=== PATIENT | male | born 1955 | race Caucasian/White ===

== ENCOUNTER 2021-05-01 10:10 | Outpatient (CLI) | payer MEDICARE, SELFPAY ==
--- NOTE | 2021-05-01 10:28 | XRR_ITS ---
PROCEDURE INFORMATION: Exam: XR Right Hip Exam date and time: 05/01/2021 10:28 AM Age: 65 years old Clinical indication: Hip pain; Right hip; Additional info: Right hip pain TECHNIQUE: Imaging protocol: XR Right hip. Views: 1 view hip with pelvis when performed. Total images: 2 COMPARISON: No relevant prior studies available. FINDINGS: Bones/joints: Moderate degenerative changes of the right hip. No acute fracture nor subluxation. No osseous erosion nor periosteal reaction. Soft tissues: Unremarkable. XR/XR hip RT 2-3V wo/w pel* [id number] IMPRESSION: 1. Moderate degenerative changes of the right hip. 2. No acute osseous pathology.
== END 2021-05-01 10:11 | disposition home or self-care (01) ==
LOC: RAD 10:20
PROVIDERS: Visit Provider Family Medicine
DX: M25.551 Pain in right hip (principal)
CPT/HCPCS: 73502

== ENCOUNTER 2021-06-27 13:02 | Outpatient (CLI) | payer MEDICARE, SELFPAY ==
--- NOTE | 2021-06-27 13:15 | MR_ITS ---
WS: [id number] MRI RIGHT HIP without CONTRAST. COMPARISON: Radiograph RIGHT hip 05/01/2021 Multiplanar, multisequence imaging is performed without contrast. Mild narrowing of the hip joints bilaterally. There are small to moderate superior lateral acetabular osteophytes, greatest on the RIGHT. No joint effusions. Increased T2 signal extending through the RI GHT superior lateral labrum consistent with a labral tear. There is also mild RIGHT greater trochante carolyn bursitis. There is a small amount of fluid adjacent to the greater tuberosity. No marrow edema or fracture. Soft tissues and muscles are symmetric bilaterally. Visualized sacrum is normal. Prostate gland is enlarged encroaching into the urinary bladder. MR/MR hip RT wo con* [id number] IMPRESSION: 1. Superior lateral RIGHT labral tear. 2. No joint effusion or marrow edema. 3. Mild bilateral hip joint osteoarthritis. 4. Very minimal RIGHT greater trochanteric bursitis.
== END 2021-06-27 13:03 | disposition home or self-care (01) ==
LOC: RAD 13:04
PROVIDERS: Visit Provider Family Medicine
DX: M16.11 Unilateral primary osteoarthritis, right hip (principal); M70.61 Trochanteric bursitis, right hip
CPT/HCPCS: 73721

== ENCOUNTER → 2021-06-30 13:19 | Outpatient (BNVA) | payer MEDICARE, SELFPAY | PROVIDERS: Referring Provider Family Medicine; Visit Provider Specialist | DX: M25.551 Pain in right hip (principal) | CPT/HCPCS: 73502 ==

== ENCOUNTER → 2021-08-20 15:02 | Outpatient (BNVA) | payer MEDICARE, SELFPAY | PROVIDERS: PCP Family Medicine; Visit Provider Specialist | DX: M16.11 Unilateral primary osteoarthritis, right hip (principal); S73.191A Other sprain of right hip, initial encounter; X58.XXXA Exposure to other specified factors, initial encounter | CPT/HCPCS: 73502; 99213 ==

== ENCOUNTER 2022-01-15 13:45 | Outpatient (CLI) | payer MEDICARE, SELFPAY ==
--- NOTE | 2022-01-15 14:17 | XRR_ITS ---
PROCEDURE INFORMATION: Exam: XR Cervical Spine Exam date and time: 01/15/2022 2:21 PM Age: 66 years old Clinical indication: Neck pain; Prior surgery; Surgery type: Arachnoid cysts at back of neck; Additional info: Chronic neck pain TECHNIQUE: Imaging protocol: Radiologic exam of the cervical spine. Views: 2 or 3 views. COMPARISON: CR XR chest 2V* [id number] 05/30/2018 9:35 AM FINDINGS: Bones/joints: No anterior wedging deformity. No acute lucent fracture lines visualized. Spondylitic changes are seen at the C6-C7 level. No destructive osseous lesions are seen. Soft tissues: Unremarkable. XR/XR cervical spine 3V* [id number] IMPRESSION: Spondylitic changes at the C6-C7 level.
--- NOTE | 2022-01-15 14:17 | XRR_ITS ---
PROCEDURE INFORMATION: Exam: XR Chest Exam date and time: 01/15/2022 2:21 PM Age: 66 years old Clinical indication: Cough; Additional info: Chronic cough TECHNIQUE: Imaging protocol: Radiologic exam of the chest. Views: 2 views. COMPARISON: CR XR chest 2V* [id number] 05/30/2018 9:35 AM FINDINGS: Lungs: There are findings of bronchitis. Developing interstitial opacity in the right lower lung may reflect atelectasis or pneumonitis. Correlate with clinical information. Pleural spaces: Unremarkable. No pleural effusion. No pneumothorax. Heart/Mediastinum: Unremarkable. No cardiomegaly. Diaphragm: There is chronic elevation of the left hemidiaphragm. Bones/joints: Unremarkable. XR/XR chest 2V* [id number] IMPRESSION: 1. Findings of bronchitis. 2. Developing interstitial opacity in the right lower lung may reflect atelectasis or pneumonitis. Correlate with clinical information.
== END 2022-01-15 13:46 | disposition home or self-care (01) ==
LOC: RAD 13:52
PROVIDERS: PCP Family Medicine; Visit Provider Family Medicine
DX: M54.2 Cervicalgia (principal); G89.29 Other chronic pain; J40 Bronchitis, not specified as acute or chronic
CPT/HCPCS: 71046; 72040

== ENCOUNTER → 2022-06-25 13:48 | Outpatient (BNVA) | payer MEDICARE, SELFPAY | PROVIDERS: PCP Family Medicine; Referring Provider General Practice; Visit Provider Physician Assistant | DX: M50.30 Other cervical disc degeneration, unspecified cervical region (principal); M47.812 Spondylosis without myelopathy or radiculopathy, cervical region | CPT/HCPCS: 72050; 99203 ==

== ENCOUNTER → 2022-07-15 12:58 | Outpatient (BNVA) | payer MEDICARE, SELFPAY | PROVIDERS: PCP Family Medicine; Referring Provider General Practice; Visit Provider Specialist | DX: M16.11 Unilateral primary osteoarthritis, right hip (principal); S73.191A Other sprain of right hip, initial encounter; X58.XXXA Exposure to other specified factors, initial encounter | CPT/HCPCS: 73502; 99214 ==

== ENCOUNTER 2022-07-20 13:29 | Outpatient (CLI) | payer MEDICARE, SELFPAY ==
--- NOTE | 2022-07-20 13:45 | MR_ITS ---
WS: [id number] MRI CERVICAL SPINE NONCONTRAST TECHNIQUE: Sagittal T1, T2 and STIR imaging. Axial T2, gradient, and fiesta imaging. CLINICAL INFORMATION: neck pain COMPARISON: None. FINDINGS: Straightening of the normal cervical lordosis. Small amount of myelomalacia in the cervical cord at C 5-C6. Cord signal is otherwise normal. C2-C3: Mild facet arthropathy. Spinal canal and foramen are patent. C3-C4: Mild disc osteophyte complex with slight contact of the cervical cord. Moderate facet arthropa thy. Mild RIGHT greater than LEFT bony foraminal narrowing. C4-C5: Disc osteophyte complex with tiny shallow central protrusion. Moderate facet arthropathy. Spin al canal and foramen are patent. C5-C6: Disc osteophyte complex with slight contact of the cervical cord. Spinal canal is patent. Fora men are patent. Moderate facet arthropathy. C6-C7: Disc osteophyte complex with slight contact of the RIGHT ventral cervical cord. Mild central c anal stenosis. Moderate RIGHT and mild LEFT bony foraminal narrowing. Mild facet arthropathy. C7-T1: Mild LEFT and no significant RIGHT foraminal narrowing. Spinal canal is patent. Visualized brain stem structures: Normal. Prevertebral soft tissues: Normal. MR/MR cervical spin wo con* [id number] IMPRESSION: 1. Straightening of the normal cervical lordosis. 2. Small amount of myelomalacia in the cervical cord at C5-C6. Cord signal oth erwise appears normal. 3. Mild central canal stenosis C6-C7 with slight contact of the RIGHT ventral cervical cord. Moderate RIGHT C6-C7 bony foraminal narrowing. 4. Moderate facet arthropathy C3-C4 C4-C5 C5-C6.
== END 2022-07-20 13:30 | disposition home or self-care (01) ==
LOC: RAD 13:34
PROVIDERS: PCP Family Medicine; Visit Provider Physician Assistant
DX: M47.812 Spondylosis without myelopathy or radiculopathy, cervical region (principal); M54.2 Cervicalgia; M25.78 Osteophyte, vertebrae; R20.2 Paresthesia of skin
CPT/HCPCS: 72141

== ENCOUNTER → 2022-09-10 13:46 | Outpatient (BNVA) | payer MEDICARE, SELFPAY | PROVIDERS: PCP Family Medicine; Visit Provider Orthopaedic Surgery | DX: M54.2 Cervicalgia (principal) | CPT/HCPCS: 99214 ==

== ENCOUNTER 2022-11-24 14:44 | Emergency (ER) | payer MEDICARE, SELFPAY ==
[2022-11-24 14:47] VITALS: BP 165/76; PULSE 81; RESP 18; TEMP 37.1; O2SAT 99
[2022-11-24 14:52] VITALS: BP 165/76; PULSE 81; RESP 18; O2SAT 99
[2022-11-24 15:18] LABS: Basophils % 0.3 %; Hematocrit 42.1 % (37-53); Lymphocytes % 22.1 %; Mean Corpuscular Hemoglobin 29.9 pg (27-33); Mean Corpuscular Volume 87.9 fl (82-101); Monocytes # 0.5 10^3/uL (0.2-0.9); Monocytes % 5.7 %; Neutrophils # 6.38 10^3/uL (1.8-7.7); Neutrophils % 71.7 %; Nucleated Red Blood Cells % 0 %; Platelet Count 225 10^3/cmm (157-399); Red Blood Count 4.79 10^6/uL (3.85-5.65); Red Cell Distribution Width 13.1 % (12.1-15.1); White Blood Count 8.91 10^3/uL (3.29-11.43)
[2022-11-24 15:41] LABS: Alanine Aminotransferase 15 U/L (0-41); Albumin Level 4.5 g/dL (3.5-5.2); Alkaline Phosphatase 77 U/L (40-130); Anion Gap 15.2 (5-19); Aspartate Amino Transferase 15 U/L (0-40); Blood Urea Nitrogen 16 mg/dL (8-23); Carbon Dioxide 22 mmol/L (22-29); Chloride 105 mmol/L (98-107); Globulin 2.2 g/dL (1.3-4.6); Glomerular Filtration Rate 166.9 mL/min (90-130); Glucose 160 mg/dL (65-115); Osmolality Calculated 291 mOsm/kg (285-295); Potassium 4.2 mmol/L (3.5-5.1); Sodium 138 mmol/L (136-145); Total Bilirubin 0.2 mg/dL (0.15-1.2); Total Protein 6.7 g/dL (6.6-8.7)
[2022-11-24 15:44] LABS: Acetaminophen < 5.0 ug/mL (10-30); Salicylate < 0.3 mg/dL (3-10)
[2022-11-24 15:58] LABS: Add Urine Microscopic? NO; Charge for UA Resulting for Rev
--- NOTE | 2022-11-24 16:05 | W.ED.PSYCHS ---
Documented by User: Valentin Yeager DO 11/25/22 05:54 HPI - Psych General: Chief Complaint: Psychiatric Symptoms Stated Complaint: /96 hold Time Seen by Provider: 11/24/22 14:53 Source: patient Mode of arrival: other (Accompanied by law enforcement) History of Present Illness: 67-year-old male presents emergency room with a long force on a 96-hour hold. Discussed with him read the deputies affidavit and discussed with his . He has become paranoid about his neighbor who is convinced is really dealing drugs. According to the his neighbor is likely actually dealing drugs however the patient has began to become obsessed with this he is convinced that they are mowing circles and the field next time to drop drugs onto from helicopters. He states he sees them out crawling around in the [place] with flashlight. He has made comments about going after the neighbor and some of the neighborhoods colleagues with firearms he is made social media posts alluding to the same. Is also comment to his about putting a bulletproof vest on her and then going after them using a pistol. Today he went to the it security administrator's department to try to file charges regarding drug dealing and they referred him to the ER for mental health evaluation because of his paranoid delusions. He denies suicidal ideation but has made threats of violence towards the neighbor to his . He is also made comments alluding to killing himself and his as well as a neighbor. This has been going on for some time but in the last week has been escalating significantly. Onset (ago): month(s) Duration: changing over time and getting worse History of same: Yes Relieving factors: none Exacerbating factors: none Associated symptoms: Deny auditory hallucinations, visual hallucinations, delusions, depression, homicidal ideation, suicidal ideation or racing thoughts Treatments prior to arrival: placed on mental health hold Review of Systems Const: Denies: fever(s), chills, fatigue or malaise Card: Denies: chest pain, edema, dyspnea on exertion or orthopnea Resp: Denies: dyspnea, productive cough or non-productive cough GI: Denies: abdominal pain, nausea, vomiting or melena : Denies: flank pain, dysuria, urinary frequency or urinary urgency Skin/Breast: Denies: rash or pruritus Psych: Denies: depression, visual hallucinations, auditory hallucinations, suicidal ideation or homicidal ideation PFSH ED PFSH: Social History Smoking and tobacco status: current every day smoker Physical Exam Const: GENERAL APPEARANCE: cooperative and comfortable ORIENTATION/CONSCIOUSNESS: Yes awake HENMT: COMMON NORMALS: normocephalic, atraumatic and hearing grossly normal bilaterally HEAD & SCALP: normocephalic and atraumatic Resp: COMMON NORMALS: normal respiratory effort, No retractions, No use of accessory muscles and clear to auscultation bilaterally AUSCULTATION: clear to auscultation bilaterally Cardio: COMMON NORMALS: regular rate, regular rhythm and No murmurs present (Cardio) RATE: regular rate RHYTHM: regular rhythm GI: COMMON NORMALS: Soft to palpation and No hepatosplenomegaly present AUSCULTATION: Yes normoactive bowel sounds PALPATION: Yes Soft to palpation, No Tenderness to palpation present (GI), No Guarding due to palpation present (GI) and Yes No hepatosplenomegaly present Extremity: COMMON NORMALS: normal to inspection, capillary refill normal, no clubbing, cyanosis or edema, no calf tenderness and no pedal edema Psych: THOUGHT CONTENT: No delusions Skin: COMMON NORMALS: no rashes or lesions noted GENERAL SKIN EXAM: no rashes or lesions noted Course Vital Signs: Vital signs: Vital Signs Temperature 98.8 F 11/24/22 14:47 Pulse Rate 86 11/25/22 04:11 Respiratory Rate 16 11/25/22 04:11 Blood Pressure 167/85 11/25/22 04:11 Pulse Oximetry 99 11/25/22 04:11 Oxygen Delivery Me thod Room Air 11/24/22 14:52 [facility] - Psych Medical Decision Making Care signed out to Dr. Prescott at change of shift. See final notes for diagnosis and disposition. Patient presents here with paranoia and acute psychosis was brought here on a 96-hour hold he is medically cleared spoke to provider at [facility] will transfer there due to psych bed availability. Medical Records I reviewed the patient's medical records. Lab Data I reviewed the patient's lab results. 11/24/22 15:12 11/24/22 15:12 Laboratory Results WBC 8.91 10^3/uL (3.29-11.43) 11/24/22 15:12 RBC 4.79 10^6/uL (3.85-5.65) 11/24/22 15:12 Hgb 14.30 g/dL (11.27-16.99) 11/24/22 15:12 Hct 42.1 % (37-53) 11/24/22 15:12 MCV 87.9 fl (82-101) 11/24/22 15:12 MCH 29.9 pg (27-33) 11/24/22 15:12 MCHC 34.0 g/dL (30-55) 11/24/22 15:12 RDW 13.1 % (12.1-15.1) 11/24/22 15:12 Plt Count 225 10^3/cmm (157-399) 11/24/22 15:12 MPV 9.0 fL (7.4-10.4) 11/24/22 15:12 Neut % (Auto) 71.7 % 11/24/22 15:12 Lymph % (Auto) 22.1 % 11/24/22 15:12 [place] % (Auto) 5.7 % 11/24/22 15:12 Eos % (Auto) 0.0 % 11/24/22 15:12 Baso % (Auto) 0.3 % 11/24/22 15:12 Neut # (Auto) 6.38 10^3/uL (1.8-7.7) 11/24/22 15:12 Lymph # (Auto) 2.0 10^3/uL (0.8-4.8) 11/24/22 15:12 [place] # (Auto) 0.5 10^3/uL (0.2-0.9) 11/24/22 15:12 Eos # (Auto) 0.0 10^3/uL (0.0-0.8) 11/24/22 15:12 Baso # (Auto) 0.0 10^3/uL (0.0-0.1) 11/24/22 15:12 Nucleated RBC % (auto) 0 % 11/24/22 15:12 Nucleated RBCs # 0.0 /100WBC 11/24/22 15:12 Sodium 138 mmol/L (136-145) 11/24/22 15:12 Potassium 4.2 mmol/L (3.5-5.1) 11/24/22 15:12 Chloride 105 mmol/L (98-107) 11/24/22 15:12 Carbon Dioxide 22 mmol/L (22-29) 11/24/22 15:12 Anion Gap 15.2 (5-19) 11/24/22 15:12 BUN 16 mg/dL (8-23) 11/24/22 15:12 Creatinine 0.5 mg/dL (0.7-1.2) L 11/24/22 15:12 GFR Calculation 166.9 mL/min (90-130) H 11/24/22 15:12 Glucose 160 mg/dL (65-115) H 11/24/22 15:12 Calculated Osmolality 291 mOsm/kg (285-295) 11/24/22 15:12 Calcium 9.0 mg/dL (8.5-10.5) 11/24/22 15:12 Total Bilirubin 0.2 mg/dL (0.15-1.2) 11/24/22 15:12 AST 15 U/L (0-40) 11/24/22 15:12 ALT 15 U/L (0-41) 11/24/22 15:12 Alkaline Phosphatase 77 U/L (40-130) 11/24/22 15:12 Total Protein 6.7 g/dL (6.6-8.7) 11/24/22 15:12 Albumin 4.5 g/dL (3.5-5.2) 11/24/22 15:12 Globulin 2.2 g/dL (1.3-4.6) 11/24/22 15:12 Urine Color Yellow (Yellow) 11/24/22 15:52 Urine Appearance Clear (CLEAR) 11/24/22 15:52 Urine pH 7 (5-7) 11/24/22 15:52 Ur Specific [place] 1.000 (1.005-1.030) L 11/24/22 15:52 Urine Protein Neg (Negative) 11/24/22 15:52 Urine Glucose (UA) Norm (Normal) 11/24/22 15:52 Urine Ketones Negative (Negative) 11/24/22 15:52 Urine Blood Neg (Negative) 11/24/22 15:52 Urine Nitrate Negative (Negative) 11/24/22 15:52 Urine Bilirubin Neg (Negative) 11/24/22 15:52 Urine Urobilinogen Norm mg/dL (Negative) 11/24/22 15:52 Ur Leukocyte Esterase Negative (Negative) 11/24/22 15:52 Salicylates < 0.3 mg/dL (3-10) L 11/24/22 15:12 Urine Opiates Screen Negative ng/mL (Negative) 11/24/22 15:52 Acetaminophen < 5.0 ug/mL (10-30) L 11/24/22 15:12 Ur Barbiturates Screen Negative ng/mL (Negative) 11/24/22 15:52 Ur Phencyclidine Scrn Negative ng/mL (Negative) 11/24/22 15:52 Ur Amphetamines Screen Negative ng/mL (Negative) 11/24/22 15:52 U Benzodiazepines Scrn Negative ng/mL (Negative) 11/24/22 15:52 Urine Cocaine Screen Negative ng/mL (Negative) 11/24/22 15:52 U Marijuana (THC) Screen Negative ng/mL (Negative) 11/24/22 15:52 Ethyl Alcohol < 10 mg/dL (0-10) 11/24/22 15:12 SARS-CoV-2 Ag (Rapid) negative (Negative) 11/24/22 15:52 Discharge Plan Discharge Patient Disposition: Xfer Psychiatric Hosp Clinical Impression: Acute psychosis Condition: Stable Referrals: Jalen Garcia MD [Primary Care Provider] - Coding Level of Care Code ED Cornice Upholsterer for Chg Fwd Documented by User: Kelvin Prescott MD 11/25/22 04:42 HPI - Psych General: Chief Complaint: Psychiatric Symptoms Stated Complaint: SI/96 hold Time Seen by Provider: 11/24/22 14:53 PFSH ED PFSH: Social History Smoking and tobacco status: current every day smoker Course Vital Signs: Vital signs: Vital Signs Temperature 98.8 F 11/24/22 14:47 Pulse Rate 86 11/25/22 04:11 Respiratory Rate 16 11/25/22 04:11 Blood Pressure 167/85 11/25/22 04:11 Pulse Oximetry 99 11/25/22 04:11 Oxygen Delivery Me thod Room Air 11/24/22 14:52 MDM - Psych Medical Decision Making Patient presents here with paranoia and acute psychosis was brought here on a 96-hour hold he is medically cleared spoke to provider at [facility] will transfer there due to psych bed availability. Lab Data 11/24/22 15:12 11/24/22 15:12 Laboratory Results WBC 8.91 10^3/uL (3.29-11.43) 11/24/22 15:12 RBC 4.79 10^6/uL (3.85-5.65) 11/24/22 15:12 Hgb 14.30 g/dL (11.27-16.99) 11/24/22 15:12 Hct 42.1 % (37-53) 11/24/22 15:12 MCV 87.9 fl (82-101) 11/24/22 15:12 MCH 29.9 pg (27-33) 11/24/22 15:12 MCHC 34.0 g/dL (30-55) 11/24/22 15:12 RDW 13.1 % (12.1-15.1) 11/24/22 15:12 Plt Count 225 10^3/cmm (157-399) 11/24/22 15:12 MPV 9.0 fL (7.4-10.4) 11/24/22 15:12 Neut % (Auto) 71.7 % 11/24/22 15:12 Lymph % (Auto) 22.1 % 11/24/22 15:12 [place] % (Auto) 5.7 % 11/24/22 15:12 Eos % (Auto) 0.0 % 11/24/22 15:12 Baso % (Auto) 0.3 % 11/24/22 15:12 Neut # (Auto) 6.38 10^3/uL (1.8-7.7) 11/24/22 15:12 Lymph # (Auto) 2.0 10^3/uL (0.8-4.8) 11/24/22 15:12 [place] # (Auto) 0.5 10^3/uL (0.2-0.9) 11/24/22 15:12 Eos # (Auto) 0.0 10^3/uL (0.0-0.8) 11/24/22 15:12 Baso # (Auto) 0.0 10^3/uL (0.0-0.1) 11/24/22 15:12 Nucleated RBC % (auto) 0 % 11/24/22 15:12 Nucleated RBCs # 0.0 /100WBC 11/24/22 15:12 Sodium 138 mmol/L (136-145) 11/24/22 15:12 Potassium 4.2 mmol/L (3.5-5.1) 11/24/22 15:12 Chloride 105 mmol/L (98-107) 11/24/22 15:12 Carbon Dioxide 22 mmol/L (22-29) 11/24/22 15:12 Anion Gap 15.2 (5-19) 11/24/22 15:12 BUN 16 mg/dL (8-23) 11/24/22 15:12 Creatinine 0.5 mg/dL (0.7-1.2) L 11/24/22 15:12 GFR Calculation 166.9 mL/min (90-130) H 11/24/22 15:12 Glucose 160 mg/dL (65-115) H 11/24/22 15:12 Calculated Osmolality 291 mOsm/kg (285-295) 11/24/22 15:12 Calcium 9.0 mg/dL (8.5-10.5) 11/24/22 15:12 Total Bilirubin 0.2 mg/dL (0.15-1.2) 11/24/22 15:12 AST 15 U/L (0-40) 11/24/22 15:12 ALT 15 U/L (0-41) 11/24/22 15:12 Alkaline Phosphatase 77 U/L (40-130) 11/24/22 15:12 Total Protein 6.7 g/dL (6.6-8.7) 11/24/22 15:12 Albumin 4.5 g/dL (3.5-5.2) 11/24/22 15:12 Globulin 2.2 g/dL (1.3-4.6) 11/24/22 15:12 Urine Color Yellow (Yellow) 11/24/22 15:52 Urine Appearance Clear (CLEAR) 11/24/22 15:52 Urine pH 7 (5-7) 11/24/22 15:52 Ur Specific [place] 1.000 (1.005-1.030) L 11/24/22 15:52 Urine Protein Neg (Negative) 11/24/22 15:52 Urine Glucose (UA) Norm (Normal) 11/24/22 15:52 Urine Ketones Negative (Negative) 11/24/22 15:52 Urine Blood Neg (Negative) 11/24/22 15:52 Urine Nitrate Negative (Negative) 11/24/22 15:52 Urine Bilirubin Neg (Negative) 11/24/22 15:52 Urine Urobilinogen Norm mg/dL (Negative) 11/24/22 15:52 Ur Leukocyte Esterase Negative (Negative) 11/24/22 15:52 Salicylates < 0.3 mg/dL (3-10) L 11/24/22 15:12 Urine Opiates Screen Negative ng/mL (Negative) 11/24/22 15:52 Acetaminophen < 5.0 ug/mL (10-30) L 11/24/22 15:12 Ur Barbiturates Screen Negative ng/mL (Negative) 11/24/22 15:52 Ur Phencyclidine Scrn Negative ng/mL (Negative) 11/24/22 15:52 Ur Amphetamines Screen Negative ng/mL (Negative) 11/24/22 15:52 U Benzodiazepines Scrn Negative ng/mL (Negative) 11/24/22 15:52 Urine Cocaine Screen Negative ng/mL (Negative) 11/24/22 15:52 U Marijuana (THC) Screen Negative ng/mL (Negative) 11/24/22 15:52 Ethyl Alcohol < 10 mg/dL (0-10) 11/24/22 15:12 SARS-CoV-2 Ag (Rapid) negative (Negative) 11/24/22 15:52 Discharge Plan Discharge Patient Disposition: Xfer Psychiatric Hosp Clinical Impression: Acute psychosis Condition: Stable Referrals: Jalen Garcia MD [Primary Care Provider] - Coding Level of Care Code ED Cornice Upholsterer for Venkat Suggs
[2022-11-24 16:08] LABS: Bilirubin Urine Neg (Negative); Blood Urine Neg (Negative); Glucose Urine UA Norm (Normal); Ketones Urine Negative (Negative); Leukocyte Esterase Urine Negative (Negative); Nitrate Urine Negative (Negative); Protein Urine Neg (Negative); Urine Appearance Clear (CLEAR); Urine Color Yellow (Yellow); Urobilinogen Urine Norm (Negative); pH Urine 7 (5-7)
[2022-11-24 16:09] LABS: Alcohol Level < 10 mg/dL (0-10)
[2022-11-24 16:17] LABS: Amphetamines Screen Urine Negative (Negative); Barbiturates Screen Urine Negative (Negative); Benzodiazepines Screen Urine Negative (Negative); Cocaine Screen Urine Negative (Negative); Opiate Screen Urine Negative (Negative); PCP Screen Urine Negative (Negative); THC Screen Urine Negative (Negative)
--- NOTE | 2022-11-24 16:17 | PC.NURSE ---
96 hr pt rights reviewed with patient in presence of [facility] employment security officer Ra @[phone]. All questions answered. Only need verbalized was for a piece of Nicotine gum. ER MD notified of request. Patient copy of 96 hr patient rights form left with patient.
[2022-11-24 16:20] LABS: SARS Covid-2 Antigen negative (Negative)
[2022-11-24] MEDS: nicotine 21 mg Patch 1 PATCH TRANSDERMA (19:21)
[2022-11-24 19:40] VITALS: BP 149/71; PULSE 67; RESP 16; O2SAT 98
--- NOTE | 2022-11-24 20:06 | ECG_ITS ---
[facility] Test Date: 2022-11-24 Pat Name: Darien Michaud Department: Room: Gender: Male Entrance Guard: ISAIAS: 1955 Requested By: Kelvin Prescott Order Number: [id number] Miranda MD: Trish Stein M.D. Measurements Intervals [place] Rate: 76 P: 69 TN: 178 QRS: 25 QRSD: 91 T: 58 QT: 399 QTc: 450 Interpretive Statements SINUS RHYTHM No previous ECG available for comparison Electronically Signed On 11-25-2022 20:01:36 CDT by Trish Stein M.D. [id number]
--- NOTE | 2022-11-24 23:02 | PC.NURSE ---
Patient requested that we order him sonic, patient states he had a money in his wallet. [facility] community dietitian and nurse looked in patients wallet and took a 20 dollar bill, patient agreed that was okay. Change will be placed back in his wallet.
[2022-11-25 01:18] VITALS: O2SAT 94
[2022-11-25 04:11] VITALS: BP 167/85; PULSE 86; RESP 16; O2SAT 99
[2022-11-25] MEDS: metoprolol tartrate 25 mg Tablet PO (04:45)
== END 2022-11-25 08:10 ==
PROVIDERS: Family Medicine; Emergency Provider Emergency Medicine; PCP Family Medicine
DX: F23 Brief psychotic disorder (principal); Z20.822 Contact with and (suspected) exposure to COVID-19; F17.210 Nicotine dependence, cigarettes, uncomplicated
CPT/HCPCS: 36415; 80053; 80306; 80307; 81003; 85025; 87426; 93005; 99285

== ENCOUNTER → 2023-11-22 08:39 | Outpatient (BNVA) | payer MEDICARE, SELFPAY | PROVIDERS: PCP Family Medicine; Referring Provider Family Medicine; Visit Provider Psychiatry & Neurology Neurology | DX: R41.3 Other amnesia (principal); R41.0 Disorientation, unspecified; F51.3 Sleepwalking [somnambulism]; F31.9 Bipolar disorder, unspecified; M16.0 Bilateral primary osteoarthritis of hip; M50.30 Other cervical disc degeneration, unspecified cervical region; Z86.79 Personal history of other diseases of the circulatory system | CPT/HCPCS: 99203 ==

== ENCOUNTER 2023-11-22 14:24 | Outpatient (CLI) | payer MEDICARE, SELFPAY | END 2023-11-22 14:25 | disposition home or self-care (01) | LOC: RAD 12-10 09:16 | PROVIDERS: PCP Family Medicine; Visit Provider Psychiatry & Neurology Neurology | DX: F31.9 Bipolar disorder, unspecified (principal); M47.812 Spondylosis without myelopathy or radiculopathy, cervical region; F03.90 Unspecified dementia, unspecified severity, without behavioral disturbance, psychotic disturbance, mood disturbance, and anxiety; M16.11 Unilateral primary osteoarthritis, right hip; M50.30 Other cervical disc degeneration, unspecified cervical region | CPT/HCPCS: 82542 ==

== ENCOUNTER 2024-01-04 14:31 | Outpatient (CLI) | payer MEDICARE, SELFPAY ==
--- NOTE | 2024-01-04 15:15 | MR_ITS ---
WS: [id number] MRI HEAD WITH CONTRAST TECHNIQUE: Sagittal T1, T2 axial, T2 axial FLAIR, axial susceptibility weighted imaging, axial diffus ion weighted images, and coronal T2 images were obtained. Pre and post-T1 axial and post T1 coronal i mages. ADC and FSPGR images. CLINICAL INFORMATION: F31.9 - Bipolar disorder, unspecified COMPARISON: None. FINDINGS: No evidence of restricted diffusion to suggest acute ischemia. Ventricular system and basal cisterns are patent. Mild small vessel changes with mild parenchymal volume loss. Small vessel changes in the sharita. Chronic lacunar infarct in the RIGHT periventricular white matter. Tiny chronic lacunar infarct in the LEFT cerebellum. Tiny chronic lacunar infarct in the LEFT centrum semiovale Normal posterior fossa. Normal vascular flow voids at the skull base. Paranasal sinuses are well aera musa. Mastoid air cells are well aerated. Normal posterior nasopharynx. Normal optic chiasm and pituitary infundibulum. Temporal lobes and hippocampal formations are normal in appearance. No abnormal gadolinium enhancement. Normal dural venous sinuses. MR/MR head wo/w con [id number] IMPRESSION: 1. No evidence of restricted diffusion to suggest acute ischemia. 2. Mild small vessel changes with mild parenchymal volume loss. Small vessel c hanges in the sharita. 3. Small chronic lacunar infarct in the RIGHT periventricular white matter. Ti ny chronic lacunar infarct LEFT cerebellum. Tiny chronic lacunar infarct in the LEFT centrum semiovale. 4. No hemosiderin on susceptibility-weighted images.
--- NOTE | 2024-01-04 15:15 | MR_ITS ---
WS: [id number] MRA HEAD TECHNIQUE: Axial 3-D TOF images obtained with axial images and axial, sagittal, and coronal 2-D refor matted images. CLINICAL INFORMATION: F31.9 - Bipolar disorder, unspecified COMPARISON: None. FINDINGS: Distal vertebral arteries are patent. Basilar artery is patent. Normal vascularity to the [place] territo ry bilaterally. Patent LEFT posterior communicating artery. Both ICAs are patent at the skull base. Normal vascularity to the [place] territory. Normal vascularity t o the MCA territories bilaterally. No evidence of high-grade proximal stenosis. MR/MR angio head wo con [id number] IMPRESSION: Unremarkable intracranial MRA.
--- NOTE | 2024-01-04 16:00 | MR_ITS ---
WS: [id number] MRA CAROTID WITHOUT AND WITH GADOLINIUM ENHANCEMENT TECHNIQUE: Axial 2-D TOF and gadolinium bolus images obtained with axial images and axial, sagittal, and coronal 2-D reformatted images. CLINICAL INFORMATION: F31.9 - Bipolar disorder, unspecified COMPARISON: None. FINDINGS: RIGHT: RIGHT common carotid artery is patent. No significant RIGHT ICA stenosis. LEFT: LEFT common carotid artery is patent. No significant LEFT ICA stenosis. Codominant and patent vertebral arteries bilaterally. Proximal subclavian arteries are patent. MR/MR angio neck w con* [id number] IMPRESSION: 1. No significant ICA stenosis bilaterally. 2. Codominant and patent vertebral arteries bilaterally patent to the basilar junction. 3. Proximal subclavian arteries are patent.
[2024-01-04] MEDS: gadobenate dimeglumine 20 mL vial 15 ML IV (17:24)
== END 2024-01-04 14:32 | disposition home or self-care (01) ==
LOC: RAD 14:31
PROVIDERS: PCP Family Medicine; Visit Provider Psychiatry & Neurology Neurology
DX: F31.9 Bipolar disorder, unspecified (principal); M47.812 Spondylosis without myelopathy or radiculopathy, cervical region; F03.90 Unspecified dementia, unspecified severity, without behavioral disturbance, psychotic disturbance, mood disturbance, and anxiety; M16.11 Unilateral primary osteoarthritis, right hip; M50.30 Other cervical disc degeneration, unspecified cervical region; R20.2 Paresthesia of skin
CPT/HCPCS: 70544; 70548; 70553; 82542

== ENCOUNTER → 2024-02-15 08:52 | Outpatient (BNVA) | payer MEDICARE, SELFPAY | PROVIDERS: PCP Family Medicine; Visit Provider Psychiatry & Neurology Neurology | DX: R56.9 Unspecified convulsions (principal); R41.0 Disorientation, unspecified; G93.40 Encephalopathy, unspecified | CPT/HCPCS: 95816; 95819 ==

== ENCOUNTER → 2024-04-17 13:42 | Outpatient (BNVA) | payer MEDICARE, SELFPAY | PROVIDERS: PCP Family Medicine; Visit Provider Psychiatry & Neurology Neurology | DX: R41.3 Other amnesia (principal); R41.0 Disorientation, unspecified; G93.40 Encephalopathy, unspecified; E55.9 Vitamin D deficiency, unspecified; G47.30 Sleep apnea, unspecified; F51.3 Sleepwalking [somnambulism] | CPT/HCPCS: 36415; 82306; 82607; 82746; 83520; 83735; 83921; 84439; 84443; 84481; 86592; 86617; 99212 ==

== ENCOUNTER 2024-11-20 19:50 | Outpatient (CLI) | payer MEDICARE, SELFPAY | END 2024-11-20 19:51 | disposition home or self-care (01) | LOC: SLEEP 19:51 | PROVIDERS: PCP Family Medicine; Visit Provider Internal Medicine Pulmonary Disease | DX: G47.10 Hypersomnia, unspecified (principal); G47.31 Primary central sleep apnea; G47.33 Obstructive sleep apnea (adult) (pediatric) | CPT/HCPCS: 95811 ==